=== PATIENT | female | born 1975 | race Caucasian/White ===

== ENCOUNTER 2017-02-16 09:33 | Inpatient (IN) | payer MEDICARE, MEDICAID ==
[~2017-02-16] VITALS: Ht 170.2 cm; Wt 93.0 kg
[~2017-02-16 09:33] MED LIST: ACAM333T7 PO; GABA600T2 PO; LAMO100T2 PO; LINA145C PO; QUET300T44 PO; [UNRECOGNIZED DRUG - CODE] IJ; [UNRECOGNIZED DRUG - CODE] PO
[2017-02-16] MEDS ORDERED: Sodium Chloride LOK Flush 10 mL Syringe IVFLUSH PRN ×2 (11:05→20:55)
[2017-02-16] MEDS ORDERED: Calcium GLUCOnate 10% (Gm) 1 Gm/10 mL Inj IV PRN (11:05)
[2017-02-16] MEDS ORDERED: Lactated Ringer's 1,000 ML IV PRN (11:05)
[2017-02-16] MEDS ORDERED: Carboprost 250 mCg/mL Inj IM PRN ×2 (11:05→20:55)
[2017-02-16] MEDS ORDERED: Magnesium Sulf 4 Gm/100 mL H2O 4 GM in IV Premix 1 EACH IV ONE (11:05)
[2017-02-16] MEDS ORDERED: Methylergonovine 0.2 mg/mL Inj IM PRN ×2 (11:05→20:55)
[2017-02-16] MEDS ORDERED: Hemorrhage Kit, Post Partum XX ONE ×2 (11:05→20:55)
[2017-02-16] MEDS ORDERED: Ondansetron 2 mg/mL 2 mL Inj IVPUSH PRN (11:05)
[2017-02-16] MEDS ORDERED: Oxytocin 30 Units/500 mL LR 30 UNITS in IV Premix 1 EACH IV PRN ×2 (11:05→20:55)
[2017-02-16] MEDS ORDERED: Oxytocin 10 Unit/mL Inj IM PRN ×2 (11:05→20:55)
[2017-02-16 12:47] LABS: Mean Corpuscular Volume 91.9 fL (81-100)
[2017-02-16] MEDS: Magnesium Sulf 20 Gm/500mL H2O 20 GM in IV Premix 1 EACH IV SCH ×5 (13:00→18:00)
--- NOTE | 2017-02-16 13:09 | DRSVH ---
PROCEDURE: US OB BIOPHYSICAL PROFILE AND UMBILICAL DOPPLER INDICATIONS: Pre-eclampsia at 35 wks 5/7 days OUTSIDE/PRIOR DATING DATA: Last menstrual period (LMP): 06/12/2016. LMP-based estimated date of delivery (EDELMIRA): 03/19/2017. First dating scan (date and location): 08/11/2016. Estimated date of delivery (EDELMIRA) from first dating scan: 03/18/2017. TECHNIQUE: Real-time scanning was performed of the fetus for biophysical profile, with image documentation. Col or and pulse Doppler interrogation was also performed of the umbilical artery near its insertion into the placenta. COMPARISON: [facility], US, US VENOUS LEG DPLX UNI RT, 02/15/2017, 13:11. [facility], US, US OB REEVAL INCOMP ANATMY LTD, 11/24/2016, 7:15. [facility], US, US OB<14 WKS, 08/11/2016, 8:46. FINDINGS: General: A single living intrauterine gestation is present. Presentation: Vertex. Placenta: Placental position is anterior, without previa. 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 A single living intrauterine gestation with the estimated gestational age of 35 weeks 5 days based on initial ultrasound. 2. Normal biophysical profile (01/25). 3. Normal CORD Doppler ultrasound was preserved diastolic flow. Dictated by: Mally Terrell M.D. on 02/16/2017 at 13:02 Approved by: Mally Terrell M.D. on 02/16/2017 at 13:07
--- NOTE | 2017-02-16 14:38 | PCM.HPOB ---
Subjective Date of Service: Feb 16, 2017 Referring Provider: Admitting Physician: Shiraz Roberson DO Primary Care Physician: Shiraz Robesron DO Attending Physician: care transfer to Dr. Dumont Chief Complaint Pre-eclampsia History of Present History of Present Illness Debby is a 41-year-old woman (GBS status unknown)with a history of well- controlled bipolar type I disorder, at 35 weeks and 5 days with her first child. Public health nursing noted yesterday and increased systolic blood pressure along with significant lower extremity edema bilaterally. Initially, the right leg was noted to be more swollen than the left, and an urgent ultrasound of the right lower extremity turned out to be negative for DVT. However, stat labs ordered yesterday in the outpatient setting did demonstrate a urine protein to creatinine ratio of 1.3. Diagnosis of preeclampsia made, patient admitted this morning to [facility] for further workup and evaluation. Biophysical profile scored 8/8 and a umbilical Doppler looks good per verbal report from the nursing team. Oral labetalol has been ineffective at controlling blood pressure, and IV labetalol protocol will be initiated. I saw Debby in my clinic early this morning before sending her to the [facility] for admission; she was asymptomatic other than feeling anxious regarding the current situation as well as her edema. No signs of headache, scotoma, altered mental status or abdominal pain. CBC and CMP from yesterday were all within normal limits. Presence of preeclampsia with severe feature is due to the systolic blood pressure being greater than 160 consistently. Her has otherwise been uneventful, and I have been co-managing her along with her psychiatrist Dr. Phipps at [facility]. We did not get a chance to run a GBS test on Debby in the outpatient arena. OB History: (1), Para Obstetrical Complications: Pre-eclampsia Past Medical History Obstetrical History: No prior obstetrical history. Gynecologic History: Her current partner and father of baby Mary has a history of seropositive HSV 2, but no history of active lesions. We did screen Debby in the clinic for herpes simplex virus; serology was negative, as was a vaginal swab. Hx Tobacco Use: No Hx Alcohol Use: No Hx Substance Use: No Past Family History Living Arrangement: with Family Genetic Screening/Counseling Genetic Screening/Counseling: Negative Genetic Screening/Counseling Initial quad screen was positive, but patient was cleared by maternal medicine consult. Review of Systems Constitutional: Y: Change of appitite, Fever, Malaise Eyes: Denies: Blurred Vision ENT: Denies: Ear Pain Cardiovascular: Denies: Chest Pain Respiratory: Denies: Cough Gastrointestinal: Denies: Abdominal Pain Genitourinary: Denies: Dysuria Musculoskeletal: Reports: Back Pain (tension and pain in the upper thorax) Neurological: Denies: Confusion, Dizziness, Incoordination Psychologic: Reports: Anxious Medications Home medications See sheet from clinic Allergy Coded Allergies: No Known Allergies (Unverified Allergy, Unknown, 04/28/16) Exam Vital Signs Blood pressure this morning was 162/78, follow-up while patient was seated calmly was 158/88, both in the left arm while seated. Constitutional: Well-developed, Well-nourished Abdomen: Gravid Extremities: Edema (+2) Neurological/Psychiatric: Alert, Oriented X3, Cooperative, No Acute Distress Neuro: Grossly Neurologically Intact Labs/Diagnostics Maternal Blood Type: O Hx Rho(D) Immune Globulin: Yes (first dose given on January 05, 2017 at 1-9 weeks and 5 days gestation) Antibody Screen: negative Group B Strep Results: Not done Previous Infant with GBS: No Rubella: Immune OB Intrapartum Assessment/Plan Assessment 41-year-old expectant mother at 35 weeks and 5 days gestation with an unknown GBS status, has developed preeclampsia necessitating labor induction and delivery. I admitted patient to the center with appropriate medication protocols for preeclampsia and magnesium infusion; I am now transferring patient's care to Dr. Fuentes and [facility] for labor and delivery given the patient is less than [address] May in pediatrics is also aware and will attend the delivery for the baby Intrapartum plan Admission to center, preeclampsia precautions put in place, patient will likely be induced later this evening for labor and delivery. Post plan: Other (Patient will need Rhogam injection post-) Shiraz Roberson DO Feb 16, 2017 14:38
[2017-02-16] MEDS ORDERED: hydrALAZINE 20 mg/mL Inj IVPUSH PRN (14:40)
[2017-02-16] MEDS ORDERED: Labetalol 5 mg/mL 20 mL Inj IV PRN (14:40)
[2017-02-16] MEDS ORDERED: Labetalol 5 mg/mL 20 mL Inj IVPUSH PRN ×2 (14:40→14:45)
[2017-02-16] MEDS ORDERED: LAMO25TA2 PO (16:41)
[2017-02-16] MEDS ORDERED: QUET300T PO (16:41)
[2017-02-16] MEDS ORDERED: LINA145C PO (16:41)
[2017-02-16] MEDS ORDERED: GABA600T2 PO (16:41)
[2017-02-16] MEDS ORDERED: CLOM25CA2 PO (16:41)
[2017-02-16] MEDS ORDERED: Sodium Citrate-Citric Acid 15 mL Solution PO ONE (18:10)
[2017-02-16] MEDS ORDERED: Betameth Ace-Betam SodPhos 6 mg/mL 5 mL Inj IM SCH (18:30)
--- NOTE | 2017-02-16 18:50 | PCM.HPANE ---
Patient Data Date of Service: Feb 16, 2017 Surgeon Admitting Provider:Shiraz Roberson DO Attending Provider:Shiraz Roberson DO Primary Care Physician:Shiraz Roberson DO Other Provider:Marah Hurtado Anesthesia Reason for Visit Pih PIH Ht/WT & BMI Height (Centimeters): 170 Weight (Kilograms): 93 Body Mass Index Allergies Coded Allergies: No Known Allergies (Unverified Allergy, Unknown, 04/28/16) Past Anesthesia History Anesthesia History: Denies:: Anesthesia Reactions Diabetes History Hx Diabetes?: No MRSA MRSA: No Medications Hypertension Medication: Yes (labetalol on L&D) Home Meds Incl Beta Sabino: Yes Active Scripts Dihydroergotamine Mesylate 1 Mg/1 Ml Vial1 Mg IJ DIRECTED PRN Headache #5 VIAL Ref 3 Inject 1mg IM. May repeat x1 in 1 hour if needed. Prov:Asael Wong MD 04/28/16 Reported Medications Linaclotide (Linzess)145 Mcg Jicsprs396 Mcg PO QAM 02/16/17 Clomipramine 25 Mg Capsule Po Hs 02/16/17 Lamotrigine (Lamictal)25 Mg Kfvhxx55 Mg PO DAILY #30 TABLET Ref 0 02/16/17 Quetiapine Fumarate (Seroquel)300 Mg Tcqkcj796 Mg PO HS Ref 0 02/16/17 Gabapentin 600 Mg Qtlfpu281 Mg PO QID Ref 0 02/16/17 Clomipramine 50 Mg [id number] Mg PO HS 05/05/16 Acamprosate 333 Mg Tablet.dr666 Mg PO TID Ref 0 05/05/16 Gabapentin 600 Mg Ulncbb875 Mg PO TID Ref 0 05/05/16 Quetiapine Fumarate 300 Mg Iiwrva333 Mg PO HS Ref 0 05/05/16 Linaclotide (Linzess)145 Mcg Tvpsyqo442 Mcg PO DAILY 05/05/16 Lamotrigine 100 Mg Difcmk324 Mg PO BID Ref 0 05/05/16 History History of ENT Problems?: Yes HEENT History: Positive for:: Sinus Problem (sinus drainage at times per mother) Denies:: Cataracts Dysphagia Denture Type: None Teeth Condition: Within Normal Limits Hx of Heart Problems?: No Cardiovascular History: Denies:: Cardiac Surgery Chest Pain Congestive Heart Failure Edema Heart Murmur Hypertension Irregular Heartbeat Pacemaker Thrombophlebitis Hx of Respiratory Problem?: No Respiratory History: Denies:: Asthma Use of Inhalers / NEBS Hx Neurologic Problems?: Yes Neurological History: Positive for:: Headaches (migraines) Peripheral Neuropathy (bilateral carpal tunnel syndrome with ) Denies:: Alzheimer's Disease CVA Dementia Dizziness Parkinson's Disease Seizures Hx of GI Problems?: No Hx of Problems?: No Genitourinary History: Denies:: HX of Hemodialysis Kidney Stones Urinary Tract Infection HX of Peritoneal Dialysis: No Female Hx: Denies:: Currently Endometriosis Pelvic Inflammatory Problems with Breasts? Hx Musculoskeletal Problems?: No Musculoskeletal History: Denies:: Back Injury Joint Replacement Musculoskeletal Trauma Hx of Psycho/Social Problems?: Yes Psycho Social History: Positive for:: Anxiety Bipolar Disorder Hx Depression Suicide Attempt Hx Surgeries?: Yes (appendectomy, tonsilectomy) Hx Any Other Health Problems?: No Other History: Positive for:: Hospitalization (mental health x 3 in orevious years) Denies:: Cancer Endocrine Disease Thyroid Disease History Blood Transfusions: Denies:: Blood Transfuse Reaction Blood Transfusions Hx Diabetes: No Hx Alcohol Use: NoHx Substance Use: No Smoking Status: Unknown if Ever Smoker Have You Smoked inLast 12 mo: Yes Stop/Bang Treated for Sleep Apnea?: No Do You Have a CPAP Machine?: No S-Snoring: Do You Snore Loudly: No T-Tired: feel tired, fatigued: No O-Obsered: Observed not breath: No P-Blood Pressure: treated: Yes (pre-eclampsia) B- Body Mass Index > 35 kg/m2: No A- Age over 50: No N- Neck Large Circumference: No G- Gender Male: No ITZEL Risk Assessment: Low Risk, <3 Yes Risk Assessment Category Category 1A: Patient has history of documented sleep apnea, and HAS NOT received any narcotic, sedative or anesthesia administration during this stay. Category 1B: Patient has history of documented sleep apnea, and HAS received any narcotic , sedative or anesthesia administration during this stay Category 2: Patient has SUSPECTED Obstructive Sleep Apnea, and HAS received any narcotic , sedative or anesthesia administration during this stay. Category 3: Patient has SUSPECTED Obstructive Sleep Apnea and HAS NOT received narcotic, sedative or anesthesia administration during this stay. Category 4: Outpatient in Procedural Areas with known sleep apnea or who screen positive for High Risk via the STOP/BANG questionnaire. Exam Exam General Appearance: Alert, Oriented X3, Cooperative, No Acute Distress HEENT/AIRWAY: MP 1, Neck Movement (from, tmd 3 fb), Mouth Opening (3 fb) Lungs: Clear to Auscultation Heart: Regular Rate/Rhythm, No Murmurs/Rubs/Gallops Meds/Labs/Diagnostics Admission Meds Current Medications Magnesium Sulfate 4 gm/Premix 100 ml @ 200 mls/hr ONCE ONCE IV Last administered on 02/16/17 14:46; Start 02/16/17 at 11:05; Stop 02/16/17 at 11:34 ; Status DC Magnesium Sulfate/ Premix (Magnesium Sulf 20 Gm/500mL H2O/ IV Premix) 500 ml @ 50 mls/hr Q1H IV Last administered on 02/16/17 15:25; Start 02/16/17 at 12:00 Labetalol HCl (Normodyne) 100 mg BID PO Last administered on 02/16/17 13:18; Start 02/16/17 at 11:50; Stop 02/16/17 at 14:21; Status DC Labs Test 02/16/17 07:15 02/16/17 12:41 Magnesium Level 3.6mg/dL (1.6-2.6) White Blood Count 12.9th/mm3 (3.8-10.1) Red Blood Count 3.35mil/mm3 (3.90-5.20) Hemoglobin 10.4g/dL (12.0-15.6) Hematocrit 30.8% (35.0-46.0) Mean Corpuscular Volume 91.9fL (81-100) Mean Corpuscular Hemoglobin 31.0pg (27.0-35.0) Mean Corpuscular Hemoglobin Concent 33.8% (32.0-37.0) Red Cell Distribution Width 13.4% (12.3-15.4) Platelet Count 268bil/L (150-400) Hematology Comments Blood Urea Nitrogen 17mg/dL (6-24) Creatinine 0.71mg/dL (0.57-1.00) Uric Acid 6.9mg/dL (2.6-7.2) Aspartate Amino Transf (AST/SGOT) 15U/L (0-50) Alanine Aminotransferase (ALT/SGPT) 8U/L (0-32) Plan Impression Patient chart reviewed, patient interviewed and anesthestic plan with risks, benefits, and alternatives discussed, and informed consent obtained. ASA Physical Status: ASA4 Life Threatening (severe pre-Eclampsia) Anesthetic Plan: SAB Bene/Risks/Altern/Consents: Yes HP Complete Prior to Induction: Yes Marcos Lanza MD Feb 16, 2017 18:50
--- NOTE | 2017-02-16 18:56 | ER ---
[address] [address] Consultation REPORT PATIENT: JANICE ORTEZ : 1975 MR#: [id number] ADMIT: 02/16/2017 JOB ID: [id number] DATE OF SERVICE: 02/16/2017 CHIEF COMPLAINT: Severe range blood pressures. HISTORY OF PRESENT ILLNESS: The patient is a 41-year-old, G1, P0 female who is presenting at 35+5 [address] gestational age from Dr. Roberson's clinic with severe preeclampsia. Her is complicated by bipolar disorder moderately well controlled on Lamictal, quetiapine, gabapentin. The patient was seen by a public health nurse yesterday and noted to have an elevated blood pressure as well as lower extremity edema and laboratory data that was collected yesterday returned with a protein creatinine ratio of 1.3. The following morning, the patient was re-evaluated and her blood pressures were again noted to be elevated up to the 160 to 170s diastolic and, for this reason, she was admitted due to her early gestational age and severe preeclampsia. Consultation with RESPIRATORY THERAPY ASSISTANT with transfer of care was initiated. PAST MEDICAL HISTORY: Bipolar disorder. PAST SURGICAL HISTORY: She has had a tonsillectomy and an appendectomy. OBSTETRICAL HISTORY: She is a G1, P0, she states her other than advanced maternal age has been uncomplicated to this point. Of note, her clinic documentation does say that there was exposure to HSV 2, but the patient was tested and negative in her . SOCIAL HISTORY: She does note tobacco use up to five cigarettes per day. She denies any alcohol or drug use. FAMILY HISTORY: Noncontributory. MEDICATIONS: 1. Lamictal 25 mg p.o. daily. 2. Quetiapine 300 mg p.o. daily. 3. Gabapentin 600 mg p.o. q.i.d. 4. She was also given labetalol this morning 100 mg p.o. which did not improve her blood pressures and currently she is on magnesium and the hypertensive protocol is currently initiated. PHYSICAL EXAMINATION: Objectively, the patient's blood pressure while on Labor and Delivery had been ranging in the 140s up to the 180s systolic over 70s to low 100s diastolic. Her pulse is currently 107. Respiratory rate is 16. She is satting 98% on room air. In general, she is awake, alert, oriented. She is in no acute distress. She is currently on magnesium. Her extremities show 3+ lower extremity edema. The remainder of the exam was deferred at this time. She was recently checked by a nurse and her cervix was noted to be closed, thick and high. LABORATORY DATA: Collected at the time of admission shows a white count of 12.9, hemoglobin of 10.4, platelet count 268. Her AST and ALT are within normal limits. Her creatinine is 0.71 and protein creatinine ratio yesterday was 1.3. lab data shows a blood type of O negative, antibody screen negative, rubella immune, varicella immune, hep B surface antigen negative, RPR nonreactive, HIV negative, and she is GBS unknown at this time. ASSESSMENT/PLANS: This is a 41-year-old, G1, P0 female at 35 and 5 weeks gestational age admitted here with preeclampsia with severe features, currently on magnesium as well as a hypertensive protocol. At this point in time, her blood pressures are ranging from the non-severe to the severe range. The patient has had the hypertensive protocol initiated. Given her unfavorable cervix, remote from delivery, I think the best plan would be proceeding with a primary low transverse section if her blood pressures are not stable. If her blood pressures can be kept in a non-severe range, then consideration for corticosteroid for lung maturity will be further discussed with Maternal Medicine given her early gestational age. However, given the entire clinical picture, it is likely and possible that she will need to move to section sooner due to her elevated blood pressures. Her case will be reviewed with the [facility] Maternal Medicine and further treatment planning will be decided at that time. [place]
[2017-02-16] MEDS ORDERED: Phenylephrine 10,000 mCg/mL Inj ONE (19:38)
[2017-02-16] MEDS ORDERED: Ondansetron 2 mg/mL 2 mL Inj ONE (19:38)
[2017-02-16] MEDS ORDERED: Oxytocin 10 Unit/mL Inj ONE (19:38)
[2017-02-16] MEDS ORDERED: MetoCLOpramide 5 mg/mL 2 mL Inj ONE (19:38)
[2017-02-16] MEDS ORDERED: Morphine PF 1 mg/mL 10 mL Inj ONE (19:38)
[2017-02-16] MEDS ORDERED: EPHEDrine Sulfate 50 mg/mL Inj IVPUSH PRN (20:40)
[2017-02-16] MEDS ORDERED: HYDROmorphone 1 mg/mL Inj IVPUSH PRN (20:40)
[2017-02-16] MEDS ORDERED: Atropine 0.4 mg/mL Inj IV PRN (20:40)
[2017-02-16] MEDS ORDERED: Phenylephrine/NS-PF 100 mCg/mL 5 mL Syringe IVPUSH PRN (20:40)
[2017-02-16] MEDS ORDERED: diphenhydrAMINE 50 mg Capsule PO PRN (20:55)
[2017-02-16] MEDS ORDERED: LANOlin HPA 7 Gm Ointment TOPICAL PRN (20:55)
--- NOTE | 2017-02-16 21:56 | OP ---
[address] [address] OPERATIVE REPORT PATIENT: JANICE ORTEZ : 1975 MR#: [id number] ADMIT: 02/16/2017 JOB ID: [id number] DATE OF SURGERY: 02/16/2017 PREOPERATIVE DIAGNOSIS(ES): 1. 35 plus 5 week intrauterine with severe preeclampsia. 2. History of bipolar disorder. 3. Rh-negative status. POSTOPERATIVE DIAGNOSIS(ES): 1. 35 plus 5 week intrauterine with severe preeclampsia. 2. History of bipolar disorder. 3. Rh-negative status. PROCEDURE PERFORMED: Primary low transverse section with delivery of a liveborn female , born on February 16, 2017 at 2006 hours, weighing 3340 g. Apgars are currently pending, but at this point in time, the baby is being transported to [facility] due to respiratory distress syndrome following delivery. SURGEON: Jena Dumont MD GROUP CARE WORKER: Shiraz Roberson DO, who was necessary for safe completion of this case. ANESTHESIA: Spinal. ESTIMATED BLOOD LOSS: 600 cc. FLUID REPLACEMENT: Crystalloid in labor. FINDINGS: Liveborn female as noted above. COMPLICATIONS: None apparent. INDICATIONS: This is a 41-year-old G-1, P-0 female who presented at 35 plus 5 weeks gestation to her primary care provider's, Dr. Roberson's, clinic for evaluation of blood pressure. She had been seen the day prior by a visiting home health nurse, who noted that her blood pressures were elevated into the 160s. On her clinic visit on the morning of the February 16, she was noted to have blood pressures in the 160s to 170s. So, she was sent to labor and delivery. Due to her early gestational age and severe preeclampsia due to her elevated blood pressure, the patient was transferred to [facility] for care. At the time of admission, laboratory data was collected and she was noted to have a normal hemoglobin and platelet count. Her creatinine was 0.71. AST and ALT were normal. She had a protein/creatinine ratio of 1.6. While on Labor and Delivery, her blood pressures ranged from the 130s all the way up to the 180s systolic over 70s to 100 diastolic. Because of this, the patient was admitted and magnesium was started. Additionally, she did receive a single dose of labetalol in the morning and her blood pressures continued to be elevated beyond this. So, hypertensive protocol was started, as well. When she was evaluated the evening of February 16, the patient was noted to be continuing to have very labile blood pressures, in the 140s all the way up to the 180s. So, Maternal- Medicine was consulted regarding delaying delivery in an attempt to get corticosteroids for lung maturation. Due to the patient's severe-range blood pressures, the recommendation was to proceed with delivery if she continued to be in the severe range. Because of this, risks, benefits and alternatives were discussed and the patient was consented to undergo a primary low transverse section. PROCEDURE IN DETAIL: The patient was taken to the operating room. She was placed in the dorsal supine position with a leftward tilt. She was prepped and draped in the usual sterile fashion. She did receive 2 g of Ancef preoperatively and a spinal anesthetic was placed. Under excellent anesthesia, the abdomen was entered sharply through a Pfannenstiel incision. This was carried down sharply to the level of the rectus fascia. The fascia was then incised in the midline and blunt and sharp dissection were used to separate the fascia from the underlying rectus muscles. The peritoneum was then entered bluntly and extended bluntly bilaterally. A bladder blade was placed and a bladder flap was then created by elevating the vesicouterine peritoneum, incising with Metzenbaum scissors and reflecting the bladder downward. The bladder blade was then replaced after downward reflection of the bladder flap. A small incision was made over the lower uterine segment, revealing a moderate amount of clear amniotic fluid. This incision was extended bluntly bilaterally. The vertex was then brought to the uterine incision and was delivered atraumatically through the uterine incision. The anterior shoulder delivered easily, followed by the posterior shoulder and the remainder of the infant was then easily delivered. The cord was then clamped and cut after approximately a 45-second cord clamping delay. When the infant was noted to have minimal spontaneous cry and breathing, she was then passed to the nursing personnel and Pediatric team who were in attendance. Cord blood was obtained. The placenta delivered intact spontaneously after 30 units of Pitocin was started in the IV bag. It was then passed off the table. The uterus was removed from the abdominal cavity, covered with moist laps and then cleaned with a lap sponge. The bladder blade was replaced. The uterus was closed with a single locking layer of 0 Vicryl. A second imbricating layer was placed on top of this. There was noted to be a slow oozing from the right cornua, so FloSeal was placed on top with good hemostasis noted. The uterus was then replaced into the abdominal cavity. Hemostasis was assured. The pericolic gutters and posterior cul-de-sac were cleared of clot and debris. The rectus muscles were inspected and noted to be hemostatic. The fascia was closed with a single locking layer of 0 Vicryl suture. The subcutaneous tissue was thin and no sutures were warranted in this layer. The skin was then closed with 4-0 Vicryl. The patient tolerated this procedure well. She recovered in labor and delivery. Her was transported [facility] to [facility] due to respiratory distress syndrome. All sponge, needle and instrument counts were correct. [facility]
[2017-02-16] MEDS: Acetaminophen IV 1,000 mg IV PRN (22:00)
--- NOTE | 2017-02-16 22:26 | PCM.ANEP1 ---
Post Anesthesia PACU Phase 1 Assessment Date of Service: Feb 16, 2017 Vital Signs BP 140/78 HR 93 T 36.5 C RR 16 SpO2 99% on RA Anesthetic Administered: SAB Level of Alertness: Awake, talking MONCADA's with Equal Strength: No (motor block still present) Pain: No Nausea or Vomiting: No CV Function & Hydration Stable: Yes Airway Device: none Oxygen Delivery: Room Air Lungs: Clear to Auscultation Dermatome Level: T8 (Costal Margin) (residual spinal block) PACU Phase 2 Assessment Complications: No Follow up Care: No Patient Instructions Provided: N/A Marcos Lanza MD Feb 16, 2017 22:26
[2017-02-16] MEDS: fentaNYL-PF 50 mCg/mL 2 mL Inj IVPUSH PRN ×2 (22:27→23:25)
[2017-02-16] MEDS: Labetalol 5 mg/mL 20 mL Inj IV PRN (23:07)
[2017-02-17] MEDS: lamoTRIgine 25 mg Tablet PO SCH ×2 (01:42→20:18)
[2017-02-17] MEDS: Magnesium Sulf 20 Gm/500mL H2O 20 GM in IV Premix 1 EACH IV SCH ×2 (01:50→11:20)
[2017-02-17] MEDS: oxyCODONE-Acetamin 5-325 mg Tablet PO PRN ×3 (02:23→20:18)
[2017-02-17] MEDS: Labetalol 5 mg/mL 20 mL Inj IV PRN (03:58)
[2017-02-17 06:14] LABS: Mean Corpuscular Hemoglobin 30.8 pg (27.0-35.0); Mean Corpuscular Volume 91.6 fL (81-100)
[2017-02-17 06:29] LABS: Magnesium 5.4 mg/dL (1.6-2.6)
[2017-02-17] MEDS ORDERED: Promethazine Inj 12.5 MG in Dextrose 5%-Pha MIX 50 ML IV ONE (07:10)
--- NOTE | 2017-02-17 07:10 | PCM.PNOBPP ---
Subjective Date of Service Feb 17, 2017 Post : Primary Ceserean Delivery Visit History The patient is a 41-year-old, G1, P0 female who presented at 35+[address] from Dr. Roberson[facility] clinic with severe preeclampsia. Her is complicated by smoking, bipolar disorder moderately well controlled on Lamictal, quetiapine, gabapentin. The patient was seen by a public health nurse 02/15/17 and noted to have an elevated blood pressure as well as lower extremity edema and laboratory data that was collected yesterday returned with a protein creatinine ratio of 1.3. 02/16/17 the patient was re- evaluated and her blood pressures were again noted to be elevated up to the 160 to 170s diastolic and, for this reason, she was admitted due to her early gestational age and severe preeclampsia. In the ED patient was given labetalol 100 mg PO without improvement in BP, subsequently patient started on magnesium, per hypertensive protocol. At time of admission cervix unfavorable for induction. Case [facility]. Decision was made to deliver patient via primary cesarian section at 1999. Subjective Today patient is laying in bed at time of examination with sexton catheter in place draining well with good urine output. Patient stated that she is having pain due to inability to take PO meds. Patient tried zofran with mild relief. Patient denies fever, chills, pain with catheter, headache, changes in vision. Lochia: Light Pain Management: PO pain meds Gastrointestinal: Good Appetite Labs 02/16/17 white count of 12.9, hemoglobin of 10.4, platelet count 268. Her AST and ALT are within normal limits. Her creatinine is 0.71 and protein creatinine ratio yesterday was 1.3. lab data shows a blood type of O negative, antibody screen negative, rubella immune, varicella immune, hep B surface antigen negative, RPR nonreactive, HIV negative, and she is GBS unknown at this time. Group B Strep Results: Not done Rubella: Immune Blood Type: O Labs Laboratory Tests 02/16/17 12:41: Hematology Comments 02/17/17 05:56: White Blood Count 16.9, Red Blood Count 3.21, Hemoglobin 9.9, Hematocrit 29.4, Mean Corpuscular Volume 91.6, Mean Corpuscular Hemoglobin 30.8, Mean Corpuscular Hemoglobin Concent 33.7, Red Cell Distribution Width 13.2, Platelet Count 282 Exam Vital Signs Vital Signs Bp 152/92 P 76 labs today Laboratory Tests 72 Hours Test 02/16/17 07:15 02/16/17 12:41 02/16/17 23:06 02/17/17 05:56 Magnesium Level 3.6mg/dL (1.6-2.6) 4.8mg/dL (1.6-2.6) 5.4mg/dL (1.6-2.6) White Blood Count 12.9th/mm3 (3.8-10.1) 16.9th/mm3 (3.8-10.1) Red Blood Count 3.35mil/mm3 (3.90-5.20) 3.21mil/mm3 (3.90-5.20) Hemoglobin 10.4g/dL (12.0-15.6) 9.9g/dL (12.0-15.6) Hematocrit 30.8% (35.0-46.0) 29.4% (35.0-46.0) Mean Corpuscular Volume 91.9fL (81-100) 91.6fL (81-100) Mean Corpuscular Hemoglobin 31.0pg (27.0-35.0) 30.8pg (27.0-35.0) Mean Corpuscular Hemoglobin Concent 33.8% (32.0-37.0) 33.7% (32.0-37.0) Red Cell Distribution Width 13.4% (12.3-15.4) 13.2% (12.3-15.4) Platelet Count 268bil/L (150-400) 282bil/L (150-400) Hematology Comments Blood Urea Nitrogen 17mg/dL (6-24) 14mg/dL (6-24) Creatinine 0.71mg/dL (0.57-1.00) 0.59mg/dL (0.57-1.00) Uric Acid 6.9mg/dL (2.6-7.2) 6.5mg/dL (2.6-7.2) Aspartate Amino Transf (AST/SGOT) 15U/L (0-50) 16U/L (0-50) Alanine Aminotransferase (ALT/SGPT) 8U/L (0-32) 7U/L (0-32) Sodium Level 131mEq/L (134-144) Potassium Level 5.2mEq/L (3.5-5.2) Chloride Level 102mEq/L (97-108) Carbon Dioxide Level 17mmol/L (18-29) Estimat Glomerular Filtration Rate 162mL/min (>59) Glucose Level 117mg/dL (60-99) Calcium Level 8.1mg/dL (8.5-10.1) Total Bilirubin 0.2mg/dL (0.0-1.2) Alkaline Phosphatase 128U/L (25-150) Total Protein 4.5g/dL (6.4-8.4) Albumin 2.4g/dL (3.4-5.0) Exam Abdomen: Fundus firm Perineum: Intact : Sexton catheter Extremities: No cords, Normal pulses, No tenderness/swelling, Edema 1+ Lungs: Clear to Auscultation, Normal Air Movement Heart: Regular Rate/Rhythm, Normal S1, Normal S2, No Murmurs/Rubs/Gallops General: Alert, Oriented X3 Surgical Wound : Incision General Appearence: Wound under dressing Dressing & Drainage Status: Dry & Intact, Reinforced, No Odor OB Post Assessment/Plan Assessment This is a 41-year-old, G1, P0 female at 35 and 5 weeks gestational age admitted here with preeclampsia with severe features, currently on magnesium as well as a hypertensive protocol. BP today 152/92 Delivered via primary 199902/16/17 due to severe blood pressures. Post operatively patient is having nausea and pain. Currently afebrile. Pain Evaluation: Other (Pain not controlled due to vomiting with PO intake) Post plan: Continue routine post care, Other (Patient will need Rhogam injection post-, Dischage to home 48 hours after cesarian section) Plan: Continue post care Continue IV MgSO4 24 hours post Continue IVF LR 125 mls/hr Hydrocodone for pain Zofran ODT for nausea IV Phenergan x 1 for nausea Advance diet as tolerated FeSO4 PO QD Vitamin C PO QD Repeat Mg serum Q6 Repeat CBC, CMP in AM Attending Statement The patient was seen and examined together with Dr. Roscoe Comer DO on 2016 and I agree with the history, exam and plan as outlined in the note above. ROSCOE COMER DO Feb 17, 2017 07:09 Bethany Mendoza MD Feb 22, 2017 08:00
[2017-02-17] MEDS: Ascorbic Acid 500 mg Tablet PO SCH (08:00)
[2017-02-17] MEDS: Acetaminophen IV 1,000 mg IV PRN (08:09)
[2017-02-17] MEDS: hydrOXYzine Pamoate 25 mg Capsule PO PRN ×2 (12:30→18:37)
[2017-02-17 14:09] LABS: Magnesium 5.7 mg/dL (1.6-2.6)
[2017-02-17] MEDS ORDERED: HYDROmorphone 1 mg/mL Inj IVPUSH PRN (20:40)
[2017-02-17] MEDS: Lactated Ringer's 1,000 ML IV SCH (21:33)
[2017-02-18] MEDS: oxyCODONE-Acetamin 5-325 mg Tablet PO PRN ×5 (02:27→21:02)
[2017-02-18 06:07] LABS: BASOPHILS % (AUTO) 0.3 % (0-3); EOSINOPHILS % (AUTO) 1.8 % (0-5); MONOCYTES % (AUTO) 8.2 % (4-12); Mean Corpuscular Hemoglobin 31.3 pg (27.0-35.0); Mean Corpuscular Volume 93.1 fL (81-100); NEUTROPHILS % (AUTO) 64.7 % (40-74); Platelet Count 274 bil/L (150-400)
--- NOTE | 2017-02-18 07:17 | PCM.PNOBPP ---
Subjective Date of Service Feb 18, 2017 Post : Primary Ceserean Delivery Visit History Debby is a 41-year-old, G1, P1, day 2, she presented at 35+[address] from Dr[facility] Roberson's clinic with severe preeclampsia. Her is complicated by smoking, bipolar disorder moderately well controlled on Lamictal, quetiapine, gabapentin. The patient was seen by a public health nurse 02/15/17 and noted to have an elevated blood pressure as well as lower extremity edema and laboratory data that was collected yesterday returned with a protein creatinine ratio of 1.3. 02/16/17 the patient was re- evaluated and her blood pressures were again noted to be elevated up to the 160 to 170s diastolic and, for this reason, she was admitted due to her early gestational age and severe preeclampsia. In the ED patient was given labetalol 100 mg PO without improvement in BP, subsequently patient started on magnesium, per hypertensive protocol. At time of admission cervix unfavorable for induction. Case reviewed with [facility]. Decision was made to deliver patient via primary cesarian section at 1999. Subjective Today 02/18/17, the patient is laying in bed at time of examination with Murrell catheter in place draining well with good urine output. She has mild lower extremity clonus 1+ bilaterally, with Magnesium drip set to DC at 8am 02/18/17. Patient stated that she is not having pain; She denies fever, chills, pain with catheter, headache, changes in vision, or upper abdominal pain. Lochia: Light Pain Management: PO pain meds Gastrointestinal: Good Appetite, denies BM or passing gas. Says that she has a history of constipation that she treats with Linzess (Linaclotide) prn. Lochia: Light Pain Management: PO pain meds Gastrointestinal: Good Appetite Postop Activity: Ambulating in Room Only Labs Labs 02/16/17 white count of 12.9, hemoglobin of 10.4, platelet count 268. Her AST and ALT are within normal limits. Her creatinine is 0.71 and protein creatinine ratio yesterday was 1.3. lab data shows a blood type of O negative, antibody screen negative, rubella immune, varicella immune, hep B surface antigen negative, RPR nonreactive, HIV negative, and she is GBS unknown at this time. Group B Strep Results: Not done Rubella: Immune Blood Type: O Group B Strep Results: Not done Rubella: Immune Blood Type: O Labs Laboratory Tests 02/16/17 12:41: Hematology Comments 02/18/17 05:37: White Blood Count 10.0, Red Blood Count 2.91, Hemoglobin 9.1, Hematocrit 27.1, Mean Corpuscular Volume 93.1, Mean Corpuscular Hemoglobin 31.3, Mean Corpuscular Hemoglobin Concent 33.6, Red Cell Distribution Width 13.5, Platelet Count 274, Neutrophils (%) (Auto) 64.7, Lymphocytes (%) (Auto) 22.5, Monocytes ( %) (Auto) 8.2, Eosinophils (%) (Auto) 1.8, Basophils (%) (Auto) 0.3 Exam Vital Signs Vital Signs BP 132/82 HR 89 Vital Signs: VS reviewed, stable Exam Abdomen: Uterus is, Fundus firm Perineum: Intact : Murrell catheter Extremities: Edema 1+, Other (Clonus b/l noted on exam) Lungs: Clear to Auscultation, Normal Air Movement Heart: Regular Rate/Rhythm, Normal S1, Normal S2 General: Oriented X3, Cooperative, No Acute Distress Surgical Wound : Incision General Appearence: Wound under dressing Dressing & Drainage Status: Dry & Intact, No Odor, Foul Odor Noted OB Post Assessment/Plan Assessment Debby is a 41-year-old, G1, P1, day 2, she presented at 35+5 weeks gestational age complected with severe preeclampsia, s/p primary cesarian section. Currently Bp controlled on IV mag. CR 0.7 mg 5.7 hct 37 hgb 9.1 Pain Evaluation: Adequate Pain Control (Pain not controlled due to vomiting with PO intake) Post plan: Continue routine post care, Other (Patient will need Rhogam injection post-, Dischage to home 48 hours after cesarian section) Plan: Continue post care Continue IV MgSO4 24 hours post DC at 0800 02/18/17 Continue IVF LR 125 mls/hr Hydrocodone for pain Zofran ODT for nausea IV Phenergan x 1 for nausea Colase 100 mg BID for constipation Magnesium citrate x 1 for constipation Advance diet as tolerated FeSO4 PO QD Vitamin C PO QD Repeat CBC, CMP in AM YEISON COMER DO Feb 18, 2017 07:16
[2017-02-18] MEDS: Ascorbic Acid 500 mg Tablet PO SCH (08:29)
[2017-02-18] MEDS: hydrOXYzine Pamoate 25 mg Capsule PO PRN ×3 (09:55→22:06)
[2017-02-18] MEDS: Lactated Ringer's 1,000 ML IV SCH (09:59)
[2017-02-18] MEDS: NIFEdipine 30 mg ER24 Tablet PO SCH (10:54)
[2017-02-18] MEDS ORDERED: Magnesium Hydroxide 355 mL Oral Suspension PO PRN (13:35)
[2017-02-18] MEDS ORDERED: Magnesium Hydroxide 10 mL Oral Concentration PO PRN (13:55)
[2017-02-18] MEDS: lamoTRIgine 25 mg Tablet PO SCH (20:36)
[2017-02-19] MEDS: oxyCODONE-Acetamin 5-325 mg Tablet PO PRN ×5 (01:11→21:04)
[2017-02-19] MEDS: hydrOXYzine Pamoate 25 mg Capsule PO PRN ×4 (05:06→23:31)
[2017-02-19 07:05] LABS: Mean Corpuscular Hemoglobin 30.9 pg (27.0-35.0); Mean Corpuscular Volume 93.5 fL (81-100); Platelet Count 286 bil/L (150-400)
[2017-02-19 07:34] LABS: BASOPHILS % (AUTO) 1 % (0-3); EOSINOPHILS % (AUTO) 2 % (0-5); MONOCYTES % (AUTO) 8 % (4-12); NEUTROPHILS % (AUTO) 66 % (40-74)
[2017-02-19] MEDS: LINZESS 145 MCG PO SCH (07:50)
[2017-02-19] MEDS: NIFEdipine 30 mg ER24 Tablet PO SCH (07:59)
[2017-02-19] MEDS ORDERED: Non-Formulary ORAL Med PO SCH (08:00)
[2017-02-19] MEDS: Ascorbic Acid 500 mg Tablet PO SCH (08:01)
[2017-02-19 08:22] VITALS: BP 143/83; PULSE 97; RESP 12
--- NOTE | 2017-02-19 11:47 | PROG NOTE ---
[address] [address] PROGRESS NOTE PATIENT: JANICE ORTEZ : 1975 MR#: [id number] ADMIT: 02/16/2017 JOB ID: [id number] DATE: 02/19/2017 This is a 41-year-old female. This is her postop day three after for severe preeclampsia at 35 weeks. This is postop day three. The patient's pain has well pain management. She has no headache, no blurry vision. No epigastric pain. She tolerated her diet. She voided well and she passed gas. She had 24 hours of magnesium after delivery. The magnesium stopped yesterday in the morning and she was also placed on labetalol 200 twice a day and Procardia 30 mg started yesterday in the morning at 10 o'clock. PHYSICAL EXAMINATION: She is afebrile. Cardiac: RR, no murmur. Pulmonary: Bilaterally clear. Abdomen: Soft, nontender. Incision clear, clean, dry, nontender. Blood pressure this morning at 7:47, it was 160/92. Communicating with nurse, this is a blood pressure check and immediately after patient walked and repeated at 20 minutes after it is 143/83. Both are before patient taking her Procardia medication in the morning. Her blood pressure yesterday has multiple 150s/80s-90s. The systolic highest is 156 and diastolic highest was 99. Mostly the diastolic in the 80s and overnight at around 1 o'clock there was pressure as low as 101/59. Her pulse was around high 80s-90s. ASSESSMENT AND PLAN: This is a 41-year-old female, postop day three after a section and severe preeclampsia status post magnesium sulfate for 24 hours and currently on labetalol 200 b.i.d. and Procardia 30 mg once a day. At this time, it looks like the patient has gradually become stable for her preeclampsia, but since her blood pressure yesterday still had several high 150 and high 90s, will monitor her blood pressure today and at this time, I do not see a need to increase her dosage of medication. Discussed the patient of the plan. Her baby at this time is still at [facility] and intubated, but I discussed the patient the necessity of being in the hospital for one more day for observation and she agreed with staying for one more day. Also communicated with nursing staff that take blood pressure when patient is well rested, not taking blood pressure when patient just walking around. BALBINA
[2017-02-19] MEDS: lamoTRIgine 25 mg Tablet PO SCH (20:07)
[2017-02-20] MEDS: oxyCODONE-Acetamin 5-325 mg Tablet PO PRN ×3 (01:26→10:03)
[2017-02-20] MEDS: hydrOXYzine Pamoate 25 mg Capsule PO PRN (05:20)
[2017-02-20] MEDS: LINZESS 145 MCG PO SCH (06:16)
[2017-02-20] MEDS: NIFEdipine 30 mg ER24 Tablet PO SCH (08:25)
[2017-02-20] MEDS: Ascorbic Acid 500 mg Tablet PO SCH (08:25)
--- NOTE | 2017-02-20 08:54 | PCM.DIOB ---
Obstetrical Disch Instruction Dates of Hospitalization Date of Hospital Admission Feb 16, 2017 at 11:25 Providers Admitting Physician: Shiraz Roberson DO Primary Care Physician: Shiraz Roberson DO Attending Physician: Shiraz Roberson DO Discharge Diagnosis Discharge Diagnosis pre-eclampsia, resolving S/p Cesarian delivery Problems: Diet Discharge Diet: No restrictions Activity Discharge Activity-General: Pelvic Rest for 6 weeks, Try not to overdue, Ice incision 3-5 time/day for 20min, No lifting >10 pounds for 4-6 weeks Dressing and Incisional Care Dressing Care: Keep dressing clean, dry & intact, Allow Steri Stripes to fall off Hygiene: May shower, Wash incision with soap & water, DO NOT soak incision under water, NO bathtub, hot tub or whirlpool, Dermoplast spray, Witch Thalia pads Additional Instructions Discharge Instructions monitor Blood pressure daily gaol <150/90 Take Labetalol 200 mg twice daily Take Nefidipine 60 mg once daily Colase 100 mg twice daily Iron supplement once daily Ibuprofen 800 mg by mouth for pain Oxycodone 5-325 mg 1-2 tab every 6-8 hours by mouth for breakthrough pain Follow up in 2 weeks and 6 weeks at clinic If you experience depression, thoughts of suicide, self harm, harming other, call our office and seek emergency medical care Follow Up Plan Follow Up Plan Follow up in 1 week with PCP or clinic for BP check, 2 weeks and 6 weeks at clinic If you experience depression, thoughts of suicide, self harm, harming other, call our office and seek emergency medical care Call your provider for: Fever or Chills, Shortness of breath, Heavy vaginal bleeding, Heavy bleeding, Epigastric pain, Excessive constipation, Vaginal discomfort, Red painful breasts YEISON COMER DO Feb 20, 2017 08:54
[2017-02-20] MEDS ORDERED: FERR-74 PO (08:58)
[2017-02-20] MEDS ORDERED: NIFE30TA92 PO (08:58)
[2017-02-20] MEDS ORDERED: IBUP800T28 PO (08:58)
[2017-02-20] MEDS ORDERED: Ascorbic Acid PO (08:58)
[2017-02-20] MEDS ORDERED: OXYC1TAB24 PO (08:58)
[2017-02-20] MEDS ORDERED: LABE100T4 PO (08:58)
[2017-02-20] MEDS ORDERED: DOCU-41 PO (08:58)
--- NOTE | 2017-02-20 09:05 | PCM.DC.OB ---
Obstetrical Discharge Summary Date of Service Feb 20, 2017 Date of hospital admission Feb 16, 2017 at 11:25 Date of Discharge: Feb 20, 2017 Providers Admitting Physician: Shiraz Roberson DO Primary Care Physician: Shiraz Roberson DO Attending Physician: Shiraz Roberson DO Diagnosis at Time of Discharge preeclampsia resolving s/p cesarian section Problems: Invasive procedures cesarian section Date of Procedure: Feb 17, 2017 Brief History and Physical: Debby is a 41-year-old woman (GBS status unknown)with a history of well- controlled bipolar type I disorder, at 35 weeks and 5 days with her first child. Public health nursing noted yesterday and increased systolic blood pressure along with significant lower extremity edema bilaterally. Initially, the right leg was noted to be more swollen than the left, and an urgent ultrasound of the right lower extremity turned out to be negative for DVT. However, stat labs ordered yesterday in the outpatient setting did demonstrate a urine protein to creatinine ratio of 1.3. Diagnosis of preeclampsia made, patient admitted this morning to [facility] for further workup and evaluation. Biophysical profile scored 8/8 and a umbilical Doppler looks good per verbal report from the nursing team. Oral labetalol has been ineffective at controlling blood pressure, and IV labetalol protocol will be initiated. 02/18/17 No signs of headache, scotoma, altered mental status or abdominal pain. CBC and CMP from yesterday were all within normal limits. Patient transitioned to oral labetalol 200 mg BID and nifedepine 30 mg with near goal range. At time of discharge patient BP one spike 160/88, average range 140's-155's / 80-90, edema , no heaaches, no clonus, no change in vision, voiding well, passing gas, ambulating on own, light lochia, pain controlled. Exam Constitutional: Well-developed, Well-nourished Abdomen: soft, fundus firm, appropriately tender, incision healing well, clean dry intact, steri strips on Extremities: Edema (+2) Neurological/Psychiatric: Alert, Oriented X3, Cooperative, No Acute Distress Neuro: Grossly Neurologically Intact Hospital Course: Debby is a 41-year-old woman (GBS status unknown)with a history of well- controlled bipolar type I disorder, at 35 weeks and 5 days with her first child. Public health nursing noted yesterday and increased systolic blood pressure along with significant lower extremity edema bilaterally. Initially, the right leg was noted to be more swollen than the left, and an urgent ultrasound of the right lower extremity turned out to be negative for DVT. However, stat labs ordered yesterday in the outpatient setting did demonstrate a urine protein to creatinine ratio of 1.3. Diagnosis of preeclampsia made, patient admitted this morning to [facility] for further workup and evaluation. Biophysical profile scored 8/8 and a umbilical Doppler looks good per verbal report from the nursing team. Oral labetalol has been ineffective at controlling blood pressure, and IV labetalol protocol will be initiated. 02/18/17 No signs of headache, scotoma, altered mental status or abdominal pain. CBC and CMP from yesterday were all within normal limits. Patient transitioned to oral labetalol 200 mg BID and nifedepine 30 mg with near goal range. At time of discharge patient BP one spike 160/88, average range 140's-155's / 80-90, edema , no heaaches, no clonus, no change in vision, voiding well, passing gas, ambulating on own, light lochia, pain controlled/ ([Ascorbic Acid]) 500 MG TABLET 500 MG PO DAILYWM Prescribed by: YEISON COMER DO Acamprosate (Acamprosate) 333 Mg Tablet.dr 666 MG PO TID (Reported) Clomipramine (Clomipramine) 50 Mg Capsule 200 MG PO HS (Reported) Clomipramine (Clomipramine) 25 Mg Capsule 0 PO HS (Reported) Last Taken: Unknown Dose on 02/15/17 1900 Dihydroergotamine Mesylate ( Dihydroergotamine Mesylate) 1 Mg/1 Ml Vial 1 MG IJ DIRECTED PRN PRN Headache Inject 1mg IM. May repeat x1 in 1 hour if needed. Prescribed by: TK AVERY MD Docusate Sodium (Colace) 100 Mg Capsule 100 MG PO BID Prescribed by: YEISON COMER DO Ferrous Sulfate (Feosol) 325 Mg Tablet 325 MG PO BIDWM Prescribed by: YEISON COMER DO Gabapentin (Gabapentin) 600 Mg Tablet 600 MG PO TID (Reported) Gabapentin (Gabapentin) 600 Mg Tablet 600 MG PO QID (Reported) Last Taken: Unknown Dose on 02/16/17 0700 Ibuprofen (Ibuprofen) 800 Mg Tablet 800 MG PO Q6H PRN PRN For Pain Prescribed by: YEISON COMER DO Labetalol (Labetalol) 100 Mg Tablet 200 MG PO BID Prescribed by: YEISON COMER DO Lamotrigine (Lamotrigine) 100 Mg Tablet 150 MG PO BID (Reported) Lamotrigine (Lamictal) 25 Mg Tablet 25 MG PO DAILY (Reported) Last Taken: Unknown Dose on 02/15/17 1900 Linaclotide (Linzess) 145 Mcg Capsule 145 MCG PO DAILY (Reported) Linaclotide (Linzess) 145 Mcg Capsule 145 MCG PO QAM (Reported) Last Taken: Unknown Dose on 02/16/17 0700 Nifedipine ER (Adalat CC) 30 Mg Tablet 60 MG PO DAILY Prescribed by: YEISON COMER DO Quetiapine Fumarate (Quetiapine Fumarate) 300 Mg Tablet 300 MG PO HS (Reported) Quetiapine Fumarate (Seroquel) 300 Mg Tablet 300 MG PO HS (Reported) Last Taken: Unknown Dose on 02/15/17 1900 oxyCODONE-Acetaminophen 5-325 mg ( oxyCODONE-Acetaminophen 5-325 mg) 1 Each Tablet 1-2 TAB PO Q4H PRN PRN For Pain Prescribed by: YEISON COMER DO Discharge Medications: see discharge summary Disposition DC home Follow-up plan Follow up one week with PCP or center. Two weeks for incision check 6 weeks for post check Patient instructions monitor Blood pressure daily gaol <150/90 Take Labetalol 200 mg twice daily Take Nefidipine 60 mg once daily Colase 100 mg twice daily Iron supplement once daily Ibuprofen 800 mg by mouth for pain Oxycodone 5-325 mg 1-2 tab every 6-8 hours by mouth for breakthrough pain Follow up in 2 weeks and 6 weeks at clinic If you experience depression, thoughts of suicide, self harm, harming other, call our office and seek emergency medical care YEISON COMER DO Feb 20, 2017 09:05
== END 2017-02-20 10:09 | disposition home or self-care (01) | DRG 766 ==
LOC: EDSTATUS 11:20 → FBC 11:25
PROVIDERS: ADMIT Family Medicine; ATTEND Family Medicine
PROC: 3E033GC Introduction of Other Therapeutic Substance into Peripheral Vein, Percutaneous Approach (ICD-10-PCS; 2017-02-16)
PROC: 10D00Z1 Extraction of Products of Conception, Low, Open Approach (ICD-10-PCS; principal; 2017-02-16 19:38)
DX: O14.14 Severe pre-eclampsia complicating childbirth (principal); O60.14X0 Preterm labor third trimester with preterm delivery third trimester, not applicable or unspecified; O99.334 Smoking (tobacco) complicating childbirth; O99.344 Other mental disorders complicating childbirth; F31.9 Bipolar disorder, unspecified; Z37.0 Single live birth; Z3A.35 35 weeks gestation of pregnancy